=== PATIENT | male | born 1965 | race Caucasian/White ===

== ENCOUNTER → 2021-05-13 | Outpatient (CLI) | payer OTHER ==
--- NOTE | 2021-05-13 12:49 | RAD ---
AP and lateral views lumbar spine 05/13/2021 INDICATION: Low back pain, radiculopathy, headaches COMPARISON STUDY: None FINDINGS: No radiographic evidence of acute fracture or alignment abnormality is identified. Mild dif fuse facet arthrosis appears to be present. There is disc space narrowing at L5-S1. A component of ne ural foraminal narrowing is difficult to exclude radiographically. Some rotation noted. No acute soft tissue abnormalities are identified. IMPRESSION: Degenerative changes of the lumbar spine without evidence of acute fracture or alignment abnormality. If clinical concern persists consider MRI evaluation. Electronically signed by: Wilmer Varghese MD (05/13/2021 12:47 PM) [id number]
== END ==
LOC: RAD 12:17
PROVIDERS: ATTEND Anesthesiology Pain Medicine
DX: M47.816 Spondylosis without myelopathy or radiculopathy, lumbar region (principal); M48.07 Spinal stenosis, lumbosacral region; Z02.71 Encounter for disability determination
CPT/HCPCS: 72100